=== PATIENT | male | born 1990 | race American Indian/Alaskan Native ===

== ENCOUNTER 2017-07-30 17:41 | Emergency (ER) | payer SELFPAY ==
--- NOTE | 2017-07-30 19:10 | Cat Scan Report ---
FINAL REPORT PROCEDURE: CT head without contrast. TECHNIQUE: Computerized tomography of the head was performed without contrast material. HISTORY: Head injury. COMPARISON: No prior studies are available for comparison. FINDINGS: The ventricles are normal in size. The vila matter and white matter appear normal. There are no mass lesions. There is no intracranial hemorrhage. The calvarium appears intact. The mastoid air cells and visualized paranasal sinuses are well aerated. IMPRESSION: Normal study.
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
[2017-07-30] MEDS ORDERED: TRIPLE ANTIBIOTIC TP ONE (20:26)
[2017-07-30] MEDS ORDERED: BOOSTRIX IM ONE (20:26)
[2017-07-30] MEDS ORDERED: TYLENOL PO ONE (20:27)
[2017-07-30 22:43] VITALS: BP 137/80
== END 2017-07-30 22:44 | disposition home or self-care (01) ==
LOC: ED 17:41
DX: S00.81XA Abrasion of other part of head, initial encounter (principal); F17.200 Nicotine dependence, unspecified, uncomplicated; W22.09XA Striking against other stationary object, initial encounter; Y93.9 Activity, unspecified; Y92.9 Unspecified place or not applicable; Y99.9 Unspecified external cause status
CPT/HCPCS: 70450; 90471; 90715; A6250